=== PATIENT | female | born 1935 | race Caucasian/White ===

== ENCOUNTER 2017-06-30 12:49 | Emergency (ER) | payer MEDICARE, OTHER ==
[2017-06-30 13:21] VITALS: BP 139/53
--- NOTE | 2017-06-30 14:27 | EDM.PDOC ---
ED HPI GENERAL MEDICAL PROBLEM - General Chief Complaint: General Stated Complaint: LOW BLOOD SUGAR Time Seen by Provider: 06/30/17 13:05 Source of Information: Reports: Patient, Family History Limitations: Reports: No Limitations - History of Present Illness INITIAL COMMENTS - FREE TEXT/NARRATIVE: 81 years old w f with a h/o IDDM came to the ed because she mixed her insulin meds up. She took a long acting insulin instead a short acting Insulin. After she drinks juice, her BS gets up to 120 and stays for 10-15, then BS drops again to 75, she take more juice ar food, her BS goes up again. With any hypoglycemic episode she gets tired. Pt denies any h/o of fall. No N/V/D or any other acute medical issue. Pt lives by herself. No F/C no Dysuria Onset: Today Onset Date: 06/30/17 Onset Time: 09:00 Duration: Hour(s):, Intermittent Location: Reports: Generalized Quality: Reports: Other (feeling tired) Improves with: Reports: Medication Worsens with: Reports: Other (not eating) Treatments [employer]IATE: Reports: Other (see below) Other Treatments [employer] SALES [employer]IATE: BLOOD SUGAR - Related Data Allergies Allergy/AdvReac Type Severity Reaction Status Date / Time aspirin Allergy Cannot Verified 06/30/17 13:49 Remember codeine Allergy Cannot Verified 06/30/17 13:49 Remember Penicillins Allergy Cannot Verified 06/30/17 13:49 Remember tetracycline Allergy Cannot Verified 06/30/17 13:49 Remember Home Meds: Home Meds Benzonatate 100 mg PO BID PRN 04/29/16 [History] Celecoxib [CeleBREX] 200 mg PO DAILY 04/29/16 [History] Insulin Glarg,Human.Rec.Analog [Lantus Solostar] 50 unit SQ ACBREAKFAST [History] Insulin Lispro [HumaLOG] See Protocol SQ TID 04/29/16 [History] Pravastatin [Pravachol] 20 mg PO DAILY 04/29/16 [History] Ranitidine HCl [Ranitidine] 300 mg PO DAILY 04/29/16 [History] Enalapril Maleate [Enalapril Maleate] 10 mg PO BID 06/30/17 [History] valACYclovir [Valtrex] 1,000 mg PO BID 09/27/17 [History] Past Medical History Genitourinary History: Reports: Urinary Incontinence, UTI, Recurrent - Past Surgical History Female Surgical History: Reports: Hysterectomy, Other (See Below) Social & Family History - Tobacco Use Smoking Status *Q: Never Smoker - Caffeine Use Caffeine Use: Reports: Coffee - Recreational Drug Use Recreational Drug Use: No ED ROS GENERAL - Review of Systems Review Of Systems: See Below Constitutional: Reports: Weakness HEENT: Reports: No Symptoms Respiratory: Reports: No Symptoms Cardiovascular: Reports: No Symptoms Endocrine: Reports: No Symptoms GI/Abdominal: Reports: No Symptoms : Reports: No Symptoms Musculoskeletal: Reports: No Symptoms Skin: Reports: No Symptoms Neurological: Reports: No Symptoms Psychiatric: Reports: No Symptoms Hematologic/Lymphatic: Reports: No Symptoms Immunologic: Reports: No Symptoms ED EXAM, GENERAL - Physical Exam Exam: See Below Exam Limited By: Other (week) General Appearance: Alert, WD/WN, Mild Distress Eye Exam: Bilateral Eye: Normal Inspection Ears: Normal External Exam Ear Exam: Bilateral Ear: Auricle Normal Nose: Normal Inspection Throat/Mouth: Normal Inspection, Normal Lips Head: Atraumatic, Normocephalic Neck: Normal Inspection, Supple, Non-Tender, Full Range of Motion Respiratory/Chest: No Respiratory Distress, Lungs Clear Cardiovascular: Normal Peripheral Pulses, Regular Rate, Rhythm, No Edema Peripheral Pulses: 1+: Femoral (L), Femoral (R) GI/Abdominal: Normal Bowel Sounds (Female) Exam: Deferred Rectal (Female) Exam: Deferred Back Exam: Normal Inspection, Full Range of Motion Extremities: Normal Inspection, Normal Range of Motion Neurological: Alert, Oriented, CN II-XII Intact, Normal Cognition, Abnormal Gait (on a walker) Psychiatric: Normal Affect, Normal Mood Skin Exam: Warm, Dry, Intact, Normal Color, No Rash Lymphatic: No Adenopathy Course - Vital Signs Text/Narrative:: 81 years old w f with a h/o IDDM came to the ed because she mixed her insulin meds up. She took a long acting insulin instead a short acting Insulin. After she drinks juice, her BS gets up to 120 and stays for 10-15, then BS drops again to 75, she take more juice ar food, her BS goes up again. With any hypoglycemic episode she gets tired. Pt denies any h/o of fall. No N/V/D or any other acute medical issue. Pt lives by herself. No F/C no Dysuria PE: WNWD w f NAD, ambulating with the waker in the examination room. Labs: HA1C1 elevated to 9.7, BUN 24 Cr 0.8 BUN/Cr 30, GFR 60 Glc 78 CBC was WNL UA was neg Impression: Hypoglycemia due to meds mixup Tx: Juice and food, accu check Reexam; Improved Plan: D/C home, her son will stay with her and will check the BS as recoomended and will take food/juice till the blood glucose lever has been stabilized. Please see D/C instructions. Last Recorded V/S: Last Vital Signs Temp 36.2 C 06/30/17 13:05 Pulse 88 06/30/17 13:05 Resp 18 06/30/17 13:05 BP 139/53 L 06/30/17 13:05 Pulse Ox 97 06/30/17 13:05 - Orders/Labs/Meds Labs: Laboratory Tests 06/30/17 06/30/17 06/30/17 Range/Units 12:59 13:15 13:15 WBC 9.8 (4.5-12.0) X10-3/uL RBC 4.68 (3.23-5.20) x10(6)uL Hgb 13.7 (11.5-15.5) g/dL Hct 40.3 (30.0-51.3) % MCV 86.1 (80-96) fL MCH 29.3 (27.7-33.6) pg MCHC 34.1 (32.2-35.4) g/dL RDW 12.9 (11.5-15.5) % Plt Count 300 (125-369) X10(3)uL MPV 8.0 (7.4-10.4) fL Neut % (Auto) 73.4 (46-82) % Lymph % (Auto) 19.9 (13-37) % Stanton % (Auto) 5.5 (4-12) % Eos % (Auto) 1 (1.0-5.0) % Baso % (Auto) 0 (0-2) % Neut # (Auto) 7.2 (1.6-8.3) # Lymph # (Auto) 2.0 (0.6-5.0) # Stanton # (Auto) 0.5 (0.0-1.3) # Eos # (Auto) 0.1 (0.0-0.8) # Baso # (Auto) 0.0 (0.0-0.2) # Sodium 138 (135-145) mmol/L Potassium 4.1 (3.5-5.3) mmol/L Chloride 104 (100-110) mmol/L Carbon Dioxide 25 (23-29) mmol/L BUN 24 H (8-23) mg/dL Creatinine 0.8 (0.6-1.3) mg/dL Est Cr Clr Drug Dosing TNP Estimated GFR (MDRD) > 60 (>60) BUN/Creatinine Ratio 30.0 H (9-20) Glucose 92 D (80-116) mg/dL POC Glucose 78 L (80-116) mg/dL Hemoglobin A1c (4.0-6.0) % Calcium 9.4 (8.6-10.2) mg/dL Urine Color (YELLOW) Urine Appearance (CLEAR) Urine pH (5.0-6.5) Ur Specific Pharr (1.010-1.025) Urine Protein (NEGATIVE) mg/dL Urine Glucose (UA) (NEGATIVE) mg/dL Urine Ketones (NEGATIVE) mg/dL Urine Occult Blood (NEGATIVE) Urine Nitrite (NEGATIVE) Urine Bilirubin (NEGATIVE) Urine Urobilinogen (NEGATIVE) mg/dL Ur Leukocyte Esterase (NEGATIVE) Urine WBC (0) Ur Squamous Epith Cells (NS,R,O) Urine Bacteria (NS) 06/30/17 06/30/17 Range/Units 13:15 13:52 WBC (4.5-12.0) X10-3/uL RBC (3.23-5.20) x10(6)uL Hgb (11.5-15.5) g/dL Hct (30.0-51.3) % MCV (80-96) fL MCH (27.7-33.6) pg MCHC (32.2-35.4) g/dL RDW (11.5-15.5) % Plt Count (125-369) X10(3)uL MPV (7.4-10.4) fL Neut % (Auto) (46-82) % Lymph % (Auto) (13-37) % Stanton % (Auto) (4-12) % Eos % (Auto) (1.0-5.0) % Baso % (Auto) (0-2) % Neut # (Auto) (1.6-8.3) # Lymph # (Auto) (0.6-5.0) # Stanton # (Auto) (0.0-1.3) # Eos # (Auto) (0.0-0.8) # Baso # (Auto) (0.0-0.2) # Sodium (135-145) mmol/L Potassium (3.5-5.3) mmol/L Chloride (100-110) mmol/L Carbon Dioxide (23-29) mmol/L BUN (8-23) mg/dL Creatinine (0.6-1.3) mg/dL Est Cr Clr Drug Dosing Estimated GFR (MDRD) (>60) BUN/Creatinine Ratio (9-20) Glucose (80-116) mg/dL POC Glucose (80-116) mg/dL Hemoglobin A1c 9.7 H (4.0-6.0) % Calcium (8.6-10.2) mg/dL Urine Color Yellow (YELLOW) Urine Appearance Clear (CLEAR) Urine pH 5.0 (5.0-6.5) Ur Specific Pharr 1.015 (1.010-1.025) Urine Protein Negative (NEGATIVE) mg/dL Urine Glucose (UA) Normal (NEGATIVE) mg/dL Urine Ketones Negative (NEGATIVE) mg/dL Urine Occult Blood Negative (NEGATIVE) Urine Nitrite Negative (NEGATIVE) Urine Bilirubin Negative (NEGATIVE) Urine Urobilinogen Normal (NEGATIVE) mg/dL Ur Leukocyte Esterase Negative (NEGATIVE) Urine WBC 0-5 (0) Ur Squamous Epith Cells Few H (NS,R,O) Urine Bacteria Few H (NS) Departure - Departure Time of Disposition: 14:25 Disposition: Home, Self-Care 01 Condition: Good Clinical Impression: Hypoglycemia - Discharge Information Referrals: Dez Solomon MD [Primary Care Provider] - Forms: ED Department Discharge Additional Instructions: Please check your blood sugar every 3 hours x 3 and then every 5 hours times 2 then every 8 hours times 1 then twice or once daily. Please F/U , please come back to the ed if your symptoms get worse acutely
== END 2017-06-30 14:30 | disposition home or self-care (01) ==
LOC: FB.ED 12:49
DX: T38.3X1A Poisoning by insulin and oral hypoglycemic [antidiabetic] drugs, accidental (unintentional), initial encounter (principal); E11.649 Type 2 diabetes mellitus with hypoglycemia without coma; Z88.5 Allergy status to narcotic agent; Z88.0 Allergy status to penicillin; Z79.4 Long term (current) use of insulin; Z87.440 Personal history of urinary (tract) infections; Z88.8 Allergy status to other drugs, medicaments and biological substances
CPT/HCPCS: 36415; 80048; 81001; 82962; 83036; 85025; 99283; 99284

== ENCOUNTER 2018-03-05 02:38 | Inpatient (IN) | payer MEDICARE, OTHER, MEDICAID ==
[2018-03-05] MEDS ORDERED: Morphine 10 MG/ML Syringe IVPUSH PRN (05:07)
[2018-03-05] MEDS ORDERED: Temazepam 7.5 MG Cap PO PRN (05:07)
[2018-03-05] MEDS ORDERED: Acetaminophen 325 MG Tab PO PRN (05:07)
[2018-03-05] MEDS ORDERED: Ondansetron 4 MG/2 ML SDV IV PRN (05:07)
[2018-03-05] MEDS ORDERED: Heparin Sodium 5,000 Units/ML Vial IVPUSH ONE (05:21)
[2018-03-05] MEDS ORDERED: Heparin Sodium/0.45% NaCl 25,000 UNITS/500 ML BAG IV SCH (05:30)
[2018-03-05] MEDS ORDERED: Sodium Chloride 0.9% 1,000 ML IV SCH (05:30)
[2018-03-05] MEDS ORDERED: INSULIN GLARG HUMAN REC ANALOG SQ SCH (07:30)
[2018-03-05] MEDS ORDERED: [UNRECOGNIZED DRUG - OTHER] SQ SCH (07:30)
[2018-03-05] MEDS ORDERED: Aspirin 81 MG Tab.Chew PO ONE (08:52)
[2018-03-05] MEDS ORDERED: Insulin Aspart 100 Units/ML 3 ML Pen SUBCUT SCH (09:00)
[2018-03-05] MEDS ORDERED: INSULIN LISPRO 5 UNIT SQ SCH (09:00)
[2018-03-05] MEDS ORDERED: Clopidogrel 75 MG Tab PO ONE (09:14)
[2018-03-05] MEDS ORDERED: Insulin Detemir 100 Units/ML 3 ML Pen SUBCUT SCH (09:30)
[2018-03-05] MEDS: Insulin Aspart 100 Units/ML 3 ML Pen SUBCUT SCH ×5 (09:39→18:03)
[2018-03-05] MEDS: Metoprolol Succinate 25 MG Tab.ER PO SCH (09:52)
[2018-03-05] MEDS: Celecoxib 200 MG Cap PO SCH (09:52)
--- NOTE | 2018-03-05 12:39 | PCM.HP ---
H&P History of Present Illness - General Date of Service: 03/05/18 Admit Problem/Dx: Admission Diagnosis/Problem Admission Diagnosis/Problem NC, Myocardial infarction Source of Information: Patient, Family, Old Records, Provider - History of Present Illness Initial Comments - Free Text/Narative: Patient is an 82-year-old female who has been living in this area for some time but is planning to move to [place]. Over the last 3 weeks she has been packing up her house and doing very strenuous activity. She hasn't had any chest pain with this, but has had a couple episodes of catching shortness of breath which last 1-5 seconds. They're usually associated with trying to lift something above her head. She's been doing very strenuous physical labor with lifting, packing, and carrying heavy boxes. This is very unusual for her. Family has been helping her and she hasn't had any episodes of dizziness, feeling like she is going to pass out, but she has had a few episodes of vomiting after she eats for the last 2 weeks. She's attributed this to the stress of the move. She has a history of diabetes and has been quite hyperglycemic. Her last A1c was 9.1% in November. She often needs to take food or drink at bedtime to make sure her blood sugars are above 200 or she has a low that wakes her up in the middle the night. Last night, the night of admission, the patient had finished doing her final packing and was in her bedroom about 9 or 10 in the evening. Her daughter was sleeping in a separate bedroom and the patient suddenly noticed as she was reclining that dirt was blowing everywhere in the room. Then she started to see people walking around in the bedroom. There was a little boy, a tall thin man. She recognized at the time that they were not real but did not know where they were coming from. It was not frightening. None of them spoke. However she started to hear buzzing sound in her left ear that was a very loud like bees. She called her daughter and her daughter came in the room and said she didn't see anything but the patient continued to see things and became more concerned. She checked her blood sugar and it was 319. They stayed at home for a couple of hours and when she rechecked her blood sugar was 248. Then they decided to come into the emergency department. She's had no further hallucinations and had no other confusion. Head CT was negative. Electrolytes were all normal and the emergency room physician would have discharged her home but initial troponin was 0.458 so she was admitted for possible myocardial infarction and further monitoring and treatment. Patient denies chest pain, heaviness of the chest, shortness of breath other than as above, no wheezing, no neck pain and jaw pain or arm pain, no dizzy spells, vomiting as noted above, no diarrhea, no other bowel or bladder changes , but she just hasn't felt "good" over the last few months. She is moving out to live with her other daughter because it's been too difficult to stay here and her daughter here has been very unhappy that she is moving. Past medical history: Diabetes mellitus type 2, insulin-dependent with retinopathy and macular edema. Last A1c 9.1% in November. Hypertension Osteoarthritis Hyperlipidemia Gastroesophageal reflux disease COPD B12 deficiency Benign familial tremor Social history: Patient is a nonsmoker, nondrinker. She lives alone but one daughter is with her currently and she is moving to [place] to live with her other daughter. She is originally from [place]. - Related Data Allergies/Adverse Reactions: Allergies Allergy/AdvReac Type Severity Reaction Status Date / Time aspirin Allergy Cannot Verified 03/05/18 03:31 Remember codeine Allergy Cannot Verified 03/05/18 03:31 Remember Penicillins Allergy Cannot Verified 03/05/18 03:31 Remember tetracycline Allergy Cannot Verified 03/05/18 03:31 Remember Home Medications: Home Meds Benzonatate 100 mg PO BID PRN 04/29/16 [History] Celecoxib [CeleBREX] 200 mg PO DAILY 04/29/16 [History] Insulin Glarg,Human.Rec.Analog [Lantus Solostar] 42 unit SQ ACBREAKFAST [History] Insulin Lispro [HumaLOG] 5 unit SQ TID PRN 04/29/16 [History] Pravastatin [Pravachol] 20 mg PO BEDTIME 04/29/16 [History] Ranitidine HCl [Ranitidine] 300 mg PO DAILY 04/29/16 [History] Enalapril Maleate 10 mg PO BID 06/30/17 [History] valACYclovir [Valtrex] 1,000 mg PO BID 06/30/17 [History] Past Medical History HEENT History: Reports: Hard of Hearing, Other (See Below) Other HEENT History: deaf L ear Cardiovascular History: Reports: Angina, High Cholesterol, Hypertension Respiratory History: Reports: Pneumonia, Recurrent Other Respiratory History: lung collapse when sleeping, uses O2 @ 1.5L/NC @ hs. Gastrointestinal History: Reports: GERD Genitourinary History: Reports: Urinary Incontinence, UTI, Recurrent [employer] History: Reports: Other OB/BYN History: Musculoskeletal History: Reports: Arthritis, Neck Pain, Chronic Neurological History: Reports: CVA Psychiatric History: Reports: Anxiety, Depression Endocrine/Metabolic History: Reports: Diabetes, Type II, Obesity/BMI 30+ Hematologic History: Reports: Blood Transfusion(s) - Infectious Disease History Infectious Disease History: Reports: Measles - Past Surgical History Head Surgeries/Procedures: Reports: None HEENT Surgical History: Reports: Adenoidectomy, Cataract Surgery, Eye Surgery, Laser Surgery, Tonsillectomy Other HEENT Surgeries/Procedures: bilat cararact surgery Respiratory Surgical History: Reports: None GI Surgical History: Reports: Colonoscopy, EGD Female Surgical History: Reports: Hysterectomy, Other (See Below) Other Female Surgeries/Procedures: total hyst Neurological Surgical History: Reports: None Musculoskeletal Surgical History: Reports: Carpal Tunnel, Knee Replacement Other Musculoskeletal Surgeries/Procedures:: bilat knee replacements, bilat carpal tunnel Social & Family History - Family History Family Medical History: Unobtainable - Tobacco Use Smoking Status *Q: Never Smoker - Caffeine Use Caffeine Use: Reports: Coffee, Tea - Recreational Drug Use Recreational Drug Use: No H&P Review of Systems - Review of Systems: Review Of Systems: ROS reveals no pertinent complaints other than HPI. Exam - Exam Exam: See Below - Vital Signs Vital Signs: Last Vital Signs Temp 36.1 C 03/05/18 05:25 Pulse 80 03/05/18 11:51 Resp 20 03/05/18 11:51 BP 156/62 H 03/05/18 11:51 Pulse Ox 94 L 03/05/18 11:51 Weight: 79.061 kg - Exam General: Alert, Oriented (x3), Cooperative HEENT: PERRLA, Conjunctiva Clear, Mucosa Moist & [place], Posterior Pharynx Clear Neck: Supple, Trachea Midline Lungs: Clear to Auscultation, Normal Respiratory Effort Cardiovascular: Regular Rate, Regular Rhythm, Normal S1, Normal S2 GI/Abdominal Exam: Normal Bowel Sounds, Soft, Non-Tender, No Distention Back Exam: Normal Inspection Extremities: Normal Inspection, No Pedal Edema, Pedal Edema (trace symmetric) Neuro Extensive - Mental Status: Alert, Oriented x3, Normal Mood/Affect, Normal Cognition, Memory Intact Neuro Extensive - Motor, Sensory, Reflexes: CN II-XII Intact, Normal Gait, Other (Patient at her usual baseline. No new deficits. Strength and movement symmetrical of UE/LE.) - Patient Data Lab Results Last 24 hrs: Laboratory Results - last 24 hr 03/05/18 03/05/18 03/05/18 Range/Units 03:15 03:15 03:15 WBC 8.8 (4.5-12.0) X10-3/uL RBC 4.84 (3.23-5.20) x10(6)uL Hgb 13.9 (11.5-15.5) g/dL Hct 42.1 (30.0-51.3) % MCV 87.0 (80-96) fL MCH 28.7 (27.7-33.6) pg MCHC 33.0 (32.2-35.4) g/dL RDW 12.7 (11.5-15.5) % Plt Count 305 (125-369) X10(3)uL MPV 8.6 (7.4-10.4) fL Neut % (Auto) 59.4 (46-82) % Lymph % (Auto) 29.8 (13-37) % [place] % (Auto) 7.8 (4-12) % Eos % (Auto) 2 (1.0-5.0) % Baso % (Auto) 1 (0-2) % Neut # (Auto) 5.2 (1.6-8.3) # Lymph # (Auto) 2.6 (0.6-5.0) # [place] # (Auto) 0.7 (0.0-1.3) # Eos # (Auto) 0.2 (0.0-0.8) # Baso # (Auto) 0.1 (0.0-0.2) # PT (8.7-11.1) INR (0.89-1.13) APTT (24.4-33.2) SECONDS Sodium 140 (135-145) mmol/L Potassium 3.6 (3.5-5.3) mmol/L Chloride 102 (100-110) mmol/L Carbon Dioxide 28 (21-32) mmol/L BUN 26 H (7-18) mg/dL Creatinine 1.1 H (0.55-1.02) mg/dL Est Cr Clr Drug Dosing 27.83 mL/min Estimated GFR (MDRD) 47 L (>60) BUN/Creatinine Ratio 23.6 H (9-20) Glucose 122 H (80-116) mg/dL POC Glucose (80-116) mg/dL Calcium 9.1 (8.6-10.2) mg/dL Total Bilirubin 0.7 (0.1-1.3) mg/dL AST 18 (5-25) IU/L ALT 18 (12-36) U/L Alkaline Phosphatase 75 (56-112) IU/L Troponin I 0.458 H* (<0.017-0.056) ng/mL Total Protein 7.3 (6.0-8.0) g/dL Albumin 3.3 (3.2-4.6) g/dL Globulin 4.0 g/dL Albumin/Globulin Ratio 0.8 Urine Color (YELLOW) Urine Appearance (CLEAR) Urine pH (5.0-6.5) Ur Specific [place] (1.010-1.025) Urine Protein (NEGATIVE) mg/dL Urine Glucose (UA) (NEGATIVE) mg/dL Urine Ketones (NEGATIVE) mg/dL Urine Occult Blood (NEGATIVE) Urine Nitrite (NEGATIVE) Urine Bilirubin (NEGATIVE) Urine Urobilinogen (NEGATIVE) mg/dL Ur Leukocyte Esterase (NEGATIVE) Urine RBC (0) Urine WBC (0) Ur Squamous Epith Cells (NS,R,O) Urine Bacteria (NS) Urine Opiates Screen (NEGATIVE) Ur Oxycodone Screen (NEGATIVE) Ur Propoxyphene Screen (NEGATIVE) Ur Barbituates Screen (NEGATIVE) Ur Tricyclics Screen (NEGATIVE) Ur Phencyclidine Scrn (NEGATIVE) Ur Amphetamine Screen (NEGATIVE) Urine MDMA Screen (NEGATIVE) U Benzodiazepines Scrn (NEGATIVE) U Cocaine Metab Screen (NEGATIVE) U Marijuana (THC) Screen (NEGATIVE) 03/05/18 03/05/18 03/05/18 Range/Units 03:15 03:15 03:33 WBC (4.5-12.0) X10-3/uL RBC (3.23-5.20) x10(6)uL Hgb (11.5-15.5) g/dL Hct (30.0-51.3) % MCV (80-96) fL MCH (27.7-33.6) pg MCHC (32.2-35.4) g/dL RDW (11.5-15.5) % Plt Count (125-369) X10(3)uL MPV (7.4-10.4) fL Neut % (Auto) (46-82) % Lymph % (Auto) (13-37) % [place] % (Auto) (4-12) % Eos % (Auto) (1.0-5.0) % Baso % (Auto) (0-2) % Neut # (Auto) (1.6-8.3) # Lymph # (Auto) (0.6-5.0) # [place] # (Auto) (0.0-1.3) # Eos # (Auto) (0.0-0.8) # Baso # (Auto) (0.0-0.2) # PT 10.0 (8.7-11.1) INR 1.03 (0.89-1.13) APTT 25.3 (24.4-33.2) SECONDS Sodium (135-145) mmol/L Potassium (3.5-5.3) mmol/L Chloride (100-110) mmol/L Carbon Dioxide (21-32) mmol/L BUN (7-18) mg/dL Creatinine (0.55-1.02) mg/dL Est Cr Clr Drug Dosing mL/min Estimated GFR (MDRD) (>60) BUN/Creatinine Ratio (9-20) Glucose (80-116) mg/dL POC Glucose (80-116) mg/dL Calcium (8.6-10.2) mg/dL Total Bilirubin (0.1-1.3) mg/dL AST (5-25) IU/L ALT (12-36) U/L Alkaline Phosphatase (56-112) IU/L Troponin I (<0.017-0.056) ng/mL Total Protein (6.0-8.0) g/dL Albumin (3.2-4.6) g/dL Globulin g/dL Albumin/Globulin Ratio Urine Color Yellow (YELLOW) Urine Appearance Slightly cloudy (CLEAR) Urine pH 6.0 (5.0-6.5) Ur Specific [place] 1.010 (1.010-1.025) Urine Protein Negative (NEGATIVE) mg/dL Urine Glucose (UA) Normal (NEGATIVE) mg/dL Urine Ketones Negative (NEGATIVE) mg/dL Urine Occult Blood Negative (NEGATIVE) Urine Nitrite Negative (NEGATIVE) Urine Bilirubin Negative (NEGATIVE) Urine Urobilinogen Normal (NEGATIVE) mg/dL Ur Leukocyte Esterase Negative (NEGATIVE) Urine RBC 0-5 (0) Urine WBC 0-5 (0) Ur Squamous Epith Cells Few H (NS,R,O) Urine Bacteria Few H (NS) Urine Opiates Screen (NEGATIVE) Ur Oxycodone Screen (NEGATIVE) Ur Propoxyphene Screen (NEGATIVE) Ur Barbituates Screen (NEGATIVE) Ur Tricyclics Screen (NEGATIVE) Ur Phencyclidine Scrn (NEGATIVE) Ur Amphetamine Screen (NEGATIVE) Urine MDMA Screen (NEGATIVE) U Benzodiazepines Scrn (NEGATIVE) U Cocaine Metab Screen (NEGATIVE) U Marijuana (THC) Screen (NEGATIVE) 03/05/18 03/05/18 Range/Units 03:33 08:28 WBC (4.5-12.0) X10-3/uL RBC (3.23-5.20) x10(6)uL Hgb (11.5-15.5) g/dL Hct (30.0-51.3) % MCV (80-96) fL MCH (27.7-33.6) pg MCHC (32.2-35.4) g/dL RDW (11.5-15.5) % Plt Count (125-369) X10(3)uL MPV (7.4-10.4) fL Neut % (Auto) (46-82) % Lymph % (Auto) (13-37) % [place] % (Auto) (4-12) % Eos % (Auto) (1.0-5.0) % Baso % (Auto) (0-2) % Neut # (Auto) (1.6-8.3) # Lymph # (Auto) (0.6-5.0) # [place] # (Auto) (0.0-1.3) # Eos # (Auto) (0.0-0.8) # Baso # (Auto) (0.0-0.2) # PT (8.7-11.1) INR (0.89-1.13) APTT (24.4-33.2) SECONDS Sodium (135-145) mmol/L Potassium (3.5-5.3) mmol/L Chloride (100-110) mmol/L Carbon Dioxide (21-32) mmol/L BUN (7-18) mg/dL Creatinine (0.55-1.02) mg/dL Est Cr Clr Drug Dosing mL/min Estimated GFR (MDRD) (>60) BUN/Creatinine Ratio (9-20) Glucose (80-116) mg/dL POC Glucose 130 H (80-116) mg/dL Calcium (8.6-10.2) mg/dL Total Bilirubin (0.1-1.3) mg/dL AST (5-25) IU/L ALT (12-36) U/L Alkaline Phosphatase (56-112) IU/L Troponin I (<0.017-0.056) ng/mL Total Protein (6.0-8.0) g/dL Albumin (3.2-4.6) g/dL Globulin g/dL Albumin/Globulin Ratio Urine Color (YELLOW) Urine Appearance (CLEAR) Urine pH (5.0-6.5) Ur Specific [place] (1.010-1.025) Urine Protein (NEGATIVE) mg/dL Urine Glucose (UA) (NEGATIVE) mg/dL Urine Ketones (NEGATIVE) mg/dL Urine Occult Blood (NEGATIVE) Urine Nitrite (NEGATIVE) Urine Bilirubin (NEGATIVE) Urine Urobilinogen (NEGATIVE) mg/dL Ur Leukocyte Esterase (NEGATIVE) Urine RBC (0) Urine WBC (0) Ur Squamous Epith Cells (NS,R,O) Urine Bacteria (NS) Urine Opiates Screen Negative (NEGATIVE) Ur Oxycodone Screen Negative (NEGATIVE) Ur Propoxyphene Screen Negative (NEGATIVE) Ur Barbituates Screen Negative (NEGATIVE) Ur Tricyclics Screen Negative (NEGATIVE) Ur Phencyclidine Scrn Negative (NEGATIVE) Ur Amphetamine Screen Negative (NEGATIVE) Urine MDMA Screen Negative (NEGATIVE) U Benzodiazepines Scrn Negative (NEGATIVE) U Cocaine Metab Screen Negative (NEGATIVE) U Marijuana (THC) Screen Negative (NEGATIVE) Result Diagrams: 03/05/18 03:15 03/05/18 03:15 - Problem List (1) Elevated troponin SNOMED Code(s): 117029221, 974969866, 182528442 ICD Code: R74.8 - ABNORMAL LEVELS OF OTHER SERUM ENZYMES Status: Acute Current Visit: Yes Problem Details: Unclear etiology. Unclear if this is new or trending down. No symptoms suggestive of cardiac but will treat as AMI at this point and follow Trops. Plavix, beta malcom started. Continue statin and ACEI. Patient not interested in intervention with no sxs at her age. She can be set up for outpatient echo next week. (2) Hallucinations SNOMED Code(s): 5942442 ICD Code: R44.3 - HALLUCINATIONS, UNSPECIFIED Status: Acute Current Visit : Yes Problem Details: Again, unclear etiology. Could be stress induced with hypnogogic state as it was in the evening when she would normally have been sleeping. With stress of moving, and grief/loss, in light of normal neuro exam would wait and see if recurs. Could get MRI as outpatient to rule out occult stroke or malignancy. Head CT negative. (3) Diabetes mellitus with ophthalmic complication SNOMED Code(s): 38208980, 07690532 ICD Code: E11.39 - TYPE 2 DIABETES W OTH DIABETIC OPHTHALMIC COMPLICATION Status: Acute Current Visit: Yes Problem Details: Poorly controlled, due to lows at night if her blood sugar is below 200 at HS. Suggest we decrease lantus to 30 units from 42, and increase Humalog to 5 units with meals if AC sugar is > 110 and start sliding scale for BS > 150. This may be contributing to her overall not feeling "good" although she can't really quantify. (4) HTN (hypertension) SNOMED Code(s): 36354654 ICD Code: I10 - ESSENTIAL (PRIMARY) HYPERTENSION Status: Acute Current Visit: Yes Problem Details: BP here in the 140-150s. Added beta malcom, monitor. (5) Hyperlipidemia associated with type 2 diabetes mellitus SNOMED Code(s): 432931242499, 684065035483 ICD Code: E11.69 - TYPE 2 DIABETES MELLITUS WITH OTHER SPECIFIED COMPLICATION ; E78.5 - HYPERLIPIDEMIA, UNSPECIFIED Status: Acute Current Visit: Yes Problem Details: Continue outpatient statin. (6) DVT prophylaxis SNOMED Code(s): 524424763, 528533061 ICD Code: VBN4144 - Status: Acute Current Visit: Yes Problem Details: Lovenox. SCDs. Problem List Initiated/Reviewed/Updated: Yes Orders Last 24hrs: Active Orders 24 hr Category Date Time Status Patient Status [ADT] Routine ADT 03/05/18 04:48 Active Accu Check [Blood Glucose Check, Bedside] [RC] Care 03/05/18 11:53 Active QIDACANDBED Cardiac Monitoring [RC] 08,16,00 Care 03/05/18 10:25 Active Height and Weight [RC] 06 Care 03/05/18 10:24 Active Intake and Output [RC] 06,14,22 Care 03/05/18 10:25 Active Notify Provider Vital Signs [RC] ASDIRECTED Care 03/05/18 10:25 Active Oxygen Therapy [RC] 08 Care 03/05/18 10:25 Active Oxygen Therapy [RC] PRN Care 03/05/18 05:19 Active Pulse Oximetry [RC] PRN Care 03/05/18 04:57 Active Up With Assistance [RC] ASDIRECTED Care 03/05/18 10:24 Active VTE/DVT Education [RC] Per Unit Routine Care 03/05/18 04:48 Active Vital Signs [RC] 08,12,16,20,00,04 Care 03/05/18 04:48 Active Vital Signs [RC] Q4H Care 03/05/18 05:19 Active Vital Signs [RC] Q4H Care 03/05/18 10:25 Active Consistent Carbohydrate Diet [DIET] Diet 03/05/18 Lunch Active Brain w Cont [MR] Routine Exams 03/05/18 07:26 Ordered Head wo Cont [CT] Stat Exams 03/05/18 03:42 Taken DRUG SCREEN, URINE ALERE [URCHEM] Stat Lab 03/05/18 03:33 Ordered TROPONIN I [CHEM] AM Lab 03/06/18 05:11 Ordered TROPONIN I [CHEM] Routine Lab 03/05/18 15:00 Ordered URINALYSIS W/MICROSCOPIC [UA W/MICROSCOPIC] [URIN] Stat Lab 03/05/18 03:33 Ordered Acetaminophen [Tylenol] Med 03/05/18 05:07 Active 650 mg PO Q4H PRN Celecoxib [CeleBREX] Med 03/05/18 10:00 Active 200 mg PO DAILY Clopidogrel [Plavix] Med 03/06/18 09:00 Active 75 mg PO DAILY Docusate Sodium/Sennosides [Senna Plus] Med 03/05/18 05:19 Active 1 tab PO BID PRN Enalapril [Vasotec] Med 03/05/18 10:00 Active 10 mg PO BID Insulin Aspart [NovoLOG] Med 03/05/18 08:00 Active 5 unit SUBCUT TIDMEALS Insulin Aspart [NovoLOG] Med 03/05/18 12:00 Active See Protocol SUBCUT TIDMEALS Insulin Detemir [Levemir] Med 03/05/18 09:30 Active 30 unit SUBCUT ACBREAKFAST Metoprolol Succinate [Toprol XL] Med 03/05/18 10:00 Active 25 mg PO DAILY Morphine Med 03/05/18 05:07 Active 2 mg IVPUSH Q2H PRN Ondansetron [Zofran] Med 03/05/18 05:07 Active 4 mg IV Q4H PRN Sodium Chloride 0.9% [Saline Flush] Med 03/05/18 05:07 Active 10 ml FLUSH ASDIRECTED PRN Peripheral IV Insertion Adult [OM.PC] Routine Oth 03/05/18 05:07 Ordered Resuscitation Status Routine Resus Stat 03/05/18 04:48 Ordered EKG 12 Lead [EK] Routine Ther 03/05/18 04:40 Ordered Medication Orders Acetaminophen (Tylenol) 650 mg PO Q4H PRN PRN Reason: Pain (Mild 1-3)/fever Celecoxib (Celebrex) 200 mg PO DAILY PENDING SALE TO [facility] Last Admin: 03/05/18 09:52 Dose: 200 mg Clopidogrel Bisulfate (Plavix) 75 mg PO DAILY PENDING SALE TO [facility] Enalapril Maleate (Vasotec) 10 mg PO BID PENDING SALE TO [facility] Last Admin: 03/05/18 09:54 Dose: 10 mg Insulin Aspart (Novolog) 5 unit SUBCUT TIDMEALS PENDING SALE TO [facility] Last Admin: 03/05/18 09:39 Dose: 5 units Insulin Aspart (Novolog) 0 unit SUBCUT TIDMEALS PENDING SALE TO [facility]; Protocol Insulin Detemir (Levemir) 30 unit SUBCUT ACBREAKFAST PENDING SALE TO [facility] Last Admin: 03/05/18 09:40 Dose: 30 units Metoprolol Succinate (Toprol Xl) 25 mg PO DAILY PENDING SALE TO [facility] Last Admin: 03/05/18 09:52 Dose: 25 mg Morphine Sulfate (Morphine) 2 mg IVPUSH Q2H PRN PRN Reason: Pain (severe 7-10) Ondansetron HCl (Zofran) 4 mg IV Q4H PRN PRN Reason: Nausea/Vomiting Senna/Docusate Sodium (Senna Plus) 1 tab PO BID PRN PRN Reason: Constipation Sodium Chloride (Saline Flush) 10 ml FLUSH ASDIRECTED PRN PRN Reason: Keep Vein Open Assessment/Plan Comment:: CODE STATUS is DNR/DNI per patient and she doesn't want to go to [facility] if it can be avoided. No cardiac intervention desired at this time, just medical management.
[2018-03-05] MEDS: Sodium Chloride 0.9% 10 ML Syringe FLUSH PRN ×2 (12:58→16:35)
[2018-03-05] MEDS ORDERED: 50% Dextrose in Water 50 ML Syringe ONE (16:32)
[2018-03-05] MEDS ORDERED: 50% Dextrose in Water 50 ML Syringe IVPUSH ONE (16:36)
[2018-03-05] MEDS ORDERED: Aluminum Hydroxide/Magnesium Hydroxide Susp 30 ML Cup PO PRN (20:49)
[2018-03-05] MEDS ORDERED: Aluminum Hydroxide/Magnesium Hydroxide Susp 30 ML Cup ONE (20:54)
[2018-03-06] MEDS: Insulin Aspart 100 Units/ML 3 ML Pen SUBCUT SCH ×6 (07:24→17:45)
[2018-03-06] MEDS: Insulin Detemir 100 Units/ML 3 ML Pen SUBCUT SCH (08:02)
[2018-03-06] MEDS ORDERED: Nitroglycerin 0.4 MG Tab.SL SL PRN (08:25)
--- NOTE | 2018-03-06 08:32 | PCM.PN ---
- General Info Date of Service: 03/06/18 Subjective Update: patient is an 82-year-old female currently on hospital day #2 for elevated troponin, diabetes mellitus type 2 with poor control, and visual hallucinations. Yesterday afternoon the patient had a significant low blood sugar of 42. Even at the reduced dose of Lantus her blood sugar dropped almost 100 points overnight. In talking with the patient about her history recently, it sounds like she's been having lots of low type symptoms and requiring eating almost constantly to try to prevent low blood sugars. Particularly with all the increased activity she's been doing, she gets shaky frequently and needs to eat or drink something with sugar in it. This is in addition to the episodes she has at night. Early this morning I transfered the patient out of the ICU and to the medical floor after her troponin came back again lower at 0.192. The patient was was eating breakfast this morning and had an episode of chest discomfort which was very mild and accompanied by a little feeling of pressure in the chest. She also had a cough with this. EKG was repeated and showed no new changes. Telemetry was unremarkable during the symptoms. Passed fairly quickly and had no other associated symptoms with it. No dizziness. No shortness of breath. No nausea or vomiting. I suspect this was gastroesophageal in nature given that it occurred with food and had coughing associated with it. - Patient Data Vitals - Most Recent: Last Vital Signs Temp 36.5 C 03/06/18 08:00 Pulse 64 03/05/18 17:44 Resp 20 03/06/18 08:00 BP 129/50 L 03/06/18 08:00 Pulse Ox 95 03/06/18 08:00 Weight - Most Recent: 78.245 kg I&O - Last 24 Hours: Intake & Output 03/05/18 03/06/18 03/06/18 22:59 06:59 14:59 Intake Total 550 100 Output Total 325 600 Balance 225 -500 Lab Results Last 24 Hours: Laboratory Results - last 24 hr 03/05/18 03/05/18 03/05/18 Range/Units 08:28 12:49 14:55 Glucose (80-116) mg/dL POC Glucose 130 H 190 H (80-116) mg/dL Troponin I 0.275 H* (<0.017-0.056) ng/mL 06/11/2103/05/18 03/05/18 Range/Units 16:19 16:25 16:47 Glucose 56 L (80-116) mg/dL POC Glucose 42 L D 166 H D (80-116) mg/dL Troponin I (<0.017-0.056) ng/mL 03/05/18 03/06/18 03/06/18 Range/Units 20:07 06:19 06:20 Glucose (80-116) mg/dL POC Glucose 197 H 103 D (80-116) mg/dL Troponin I 0.192 H* (<0.017-0.056) ng/mL Med Orders - Current: Current Medications Acetaminophen (Tylenol) 650 mg PO Q4H PRN PRN Reason: Pain (Mild 1-3)/fever Al Hydroxide/Mg Hydroxide (Mag-Al Susp) 30 ml PO Q2H PRN PRN Reason: Indigestion Last Admin: 03/05/18 20:55 Dose: 30 ml Celecoxib (Celebrex) 200 mg PO DAILY [facility] Last Admin: 03/05/18 09:52 Dose: 200 mg Clopidogrel Bisulfate (Plavix) 75 mg PO DAILY [facility] Enalapril Maleate (Vasotec) 10 mg PO BID [facility] Last Admin: 03/05/18 20:08 Dose: 10 mg Famotidine (Pepcid) 20 mg PO DAILY [facility] Insulin Aspart (Novolog) 0 unit SUBCUT TIDMEALS [facility]; Protocol Last Admin: 03/06/18 07:24 Dose: Not Given Insulin Aspart (Novolog) 2 unit SUBCUT TIDMEALS [facility] Last Admin: 03/06/18 08:01 Dose: 2 units Insulin Detemir (Levemir) 15 unit SUBCUT ACBREAKFAST [facility] Last Admin: 03/06/18 08:02 Dose: 15 units Metoprolol Succinate (Toprol Xl) 25 mg PO DAILY [facility] Last Admin: 03/05/18 09:52 Dose: 25 mg Morphine Sulfate (Morphine) 2 mg IVPUSH Q2H PRN PRN Reason: Pain (severe 7-10) Nitroglycerin (Nitrostat) 0.4 mg SL Q5M PRN PRN Reason: Chest Pain Ondansetron HCl (Zofran) 4 mg IV Q4H PRN PRN Reason: Nausea/Vomiting Senna/Docusate Sodium (Senna Plus) 1 tab PO BID PRN PRN Reason: Constipation Simvastatin (Zocor) 10 mg PO BEDTIME [facility] Sodium Chloride (Saline Flush) 10 ml FLUSH ASDIRECTED PRN PRN Reason: Keep Vein Open Last Admin: 03/05/18 16:35 Dose: 10 ml Discontinued Medications Al Hydroxide/Mg Hydroxide (Mag-Al Susp) Confirm Administered Dose 30 ml .ROUTE .STK-MED ONE Stop: 03/05/18 20:55 Last Admin: 03/05/18 21:08 Dose: Not Given Aspirin (Aspirin) 324 mg PO ONETIME ONE Stop: 03/05/18 08:53 Last Admin: 03/05/18 09:01 Dose: Not Given Aspirin (Halfprin) 81 mg PO DAILY [facility] Clopidogrel Bisulfate (Plavix) 300 mg PO ONETIME ONE Stop: 03/05/18 09:15 Last Admin: 03/05/18 09:52 Dose: 300 mg Dextrose/Water (Dextrose 50% In Water) Confirm Administered Dose 50 ml .ROUTE .STK-MED ONE Stop: 03/05/18 16:33 Last Admin: 03/05/18 16:42 Dose: Not Given Dextrose/Water (Dextrose 50% In Water) 25 ml IVPUSH ONETIME ONE Stop: 03/05/18 16:37 Last Admin: 03/05/18 16:33 Dose: 25 ml Heparin Sodium (Porcine) (Heparin Sodium) 5,000 units IVPUSH ONETIME ONE Stop: 03/05/18 05:22 Last Admin: 03/05/18 06:14 Dose: 5,000 units Heparin Sodium/Sodium Chloride (Heparin 25,000 Units In 1/2 Ns 500 Ml) 25,000 units in 500 mls @ 20 mls/hr IV TITRATE [facility]; Protocol Sodium Chloride (Normal Saline) 1,000 mls @ 75 mls/hr IV ASDIRECTED [facility] Last Admin: 03/05/18 06:12 Dose: 75 mls/hr Insulin Aspart (Novolog) 5 unit SUBCUT TIDMEALS [facility] Last Admin: 03/05/18 12:56 Dose: 5 units Insulin Aspart (Novolog) 30 unit SUBCUT ACBREAKFAST [facility] Last Admin: 03/05/18 10:04 Dose: Not Given Insulin Detemir (Levemir) 30 unit SUBCUT ACBREAKFAST [facility] Last Admin: 03/05/18 09:40 Dose: 30 units Non-Formulary Medication (Insulin Glarg,Human.Rec.Analog [Lantus Solostar]) 42 unit SQ ACBREAKFAST [facility] Last Admin: 03/05/18 09:00 Dose: Not Given Non-Formulary Medication (Insulin Lispro [Humalog]) 5 unit SQ TID [facility] Temazepam (Restoril) 7.5 mg PO BEDTIME PRN PRN Reason: Sleep - Exam General: Alert, Oriented, Cooperative, No Acute Distress HEENT: Pupils Equal, Pupils Reactive Neck: Supple Lungs: Clear to Auscultation, Normal Respiratory Effort Cardiovascular: Regular Rate, Regular Rhythm, No Murmurs GI/Abdominal Exam: Normal Bowel Sounds, Soft, Non-Tender, No Distention Extremities: Normal Inspection, No Pedal Edema (Exquisitely tender legs to light touch which patient notes is chronic. She mentioned this yesterday as well.) - Problem List & Annotations (1) Elevated troponin SNOMED Code(s): 059958935, 729860081, 380724387 Code(s): R74.8 - ABNORMAL LEVELS OF OTHER SERUM ENZYMES Status: Acute Current Visit: Yes Annotation/Comment:: I suspect this patient may have had a global ischemia possibly related to these intermittent low blood sugars. Given the rapid trending down, it's likely this happened at least 24 hours before admission if not longer. Plavix, beta malcom started. Continue statin and ACEI. Patient not interested in intervention with no sxs at her age. She can be set up for outpatient echo next week. (2) Hallucinations SNOMED Code(s): 5510336 Code(s): R44.3 - HALLUCINATIONS, UNSPECIFIED Status: Acute Current Visit : Yes Annotation/Comment:: Unclear etiology. In reviewing the patient's medications, Valtrex does have the potential for rare side effect of hallucinations but the patient is not sure when she started this, why she's been taking this, and it's not on her list in the clinic chart. We will have to contact the pharmacy to see if we can find out when it was started. She denies shingles or cold sores.I did hold it on admission since she wasn't sure why she' s on it and she's had no further hallucinations this morning. Could also be related to the hyper/hypoglycemia. Continue to monitor. (3) Diabetes mellitus with ophthalmic complication SNOMED Code(s): 62299807, 77624512 Code(s): E11.39 - TYPE 2 DIABETES [facility] DIABETIC OPHTHALMIC COMPLICATION Status: Acute Current Visit: Yes Annotation/Comment:: Poorly controlled and I suspect the patient is having significant lows with subsequent eating and drinking trying to increase her blood sugars to normal levels. This results in highs which causes her insulin to be increased by her provider which is making the problem worse. I'd like to keep her here for 2 or 3 days to stabilize her blood sugars and make sure that her insulin particularly the long-acting isn't dropping her blood sugars more than 40-50 points overnight.feeding she had such a significant drop yesterday to 42 postprandially in the afternoon that I cut her meal coverage down to 2 units per meal with low-dose sliding scale. We'll continue that today. (4) HTN (hypertension) SNOMED Code(s): 30631426 Code(s): I10 - ESSENTIAL (PRIMARY) HYPERTENSION Status: Acute Current Visit: Yes Annotation/Comment:: BP here in the 140-150s. Added beta malcom, monitor. (5) Hyperlipidemia associated with type 2 diabetes mellitus SNOMED Code(s): 031470145504, 040866240158 Code(s): E11.69 - TYPE 2 DIABETES MELLITUS WITH OTHER SPECIFIED COMPLICATION ; E78.5 - HYPERLIPIDEMIA, UNSPECIFIED Status: Acute Current Visit: Yes Annotation/Comment:: Continue outpatient statin. (6) DVT prophylaxis SNOMED Code(s): 245670461, 592862174 Code(s): MBN4157 - Status: Acute Current Visit: Yes Annotation/Comment :: Lovenox. SCDs. - Problem List Review Problem List Initiated/Reviewed/Updated: Yes - My Orders Last 24 Hours: My Active Orders 03/05/18 10:00 Metoprolol Succinate [Toprol XL] 25 mg PO DAILY 03/05/18 10:24 Height and Weight [RC] 06 Up With Assistance [RC] ASDIRECTED 03/05/18 10:25 Cardiac Monitoring [RC] 08,16,00 Intake and Output [RC] 06,14,22 Notify Provider Vital Signs [RC] ASDIRECTED Oxygen Therapy [RC] 08 Vital Signs [RC] 08,12,16,20,00,04 03/05/18 11:53 Accu Check [Blood Glucose Check, Bedside] [] 08,12,18,21 03/05/18 12:00 Insulin Aspart [NovoLOG] See Protocol SUBCUT TIDMEALS 03/05/18 16:45 Blood Glucose Check, Bedside [] ONETIME 03/05/18 18:00 Insulin Aspart [NovoLOG] 2 unit SUBCUT TIDMEALS 03/05/18 20:49 Alum Hydroxide/Mag Hydroxide [Mag-Al Susp] 30 ml PO Q2H PRN 03/05/18 Lunch Consistent Carbohydrate Diet [DIET] 03/06/18 07:30 Insulin Detemir [Levemir] 15 unit SUBCUT ACBREAKFAST 03/06/18 08:25 Nitroglycerin [Nitrostat] 0.4 mg SL Q5M PRN 03/06/18 09:00 Clopidogrel [Plavix] 75 mg PO DAILY Famotidine [Pepcid] 20 mg PO DAILY 03/06/18 21:00 Simvastatin [Zocor] 10 mg PO BEDTIME - Plan Plan:: CODE STATUS is DNR/DNI per patient and she doesn't want to go to [place] if it can be avoided. No cardiac intervention desired at this time, just medical management.
[2018-03-06] MEDS ORDERED: Aspirin 81 MG Tab.EC PO SCH (09:00)
[2018-03-06] MEDS: Celecoxib 200 MG Cap PO SCH (09:37)
[2018-03-06] MEDS: Clopidogrel 75 MG Tab PO SCH (09:39)
[2018-03-06] MEDS: Metoprolol Succinate 25 MG Tab.ER PO SCH (09:39)
[2018-03-06] MEDS: Famotidine 20 MG Tab PO SCH (09:47)
[2018-03-06] MEDS: Enoxaparin 30 MG/0.3 ML Syringe SUBCUT SCH (11:24)
[2018-03-06] MEDS: Simvastatin 10 MG Tab PO SCH (22:29)
[2018-03-06] MEDS: hydrOXYzine HCl 25 MG Tab PO PRN (23:21)
[2018-03-07] MEDS: hydrOXYzine HCl 25 MG Tab PO PRN (08:09)
[2018-03-07] MEDS: Insulin Aspart 100 Units/ML 3 ML Pen SUBCUT SCH ×6 (08:15→17:27)
[2018-03-07] MEDS: Insulin Detemir 100 Units/ML 3 ML Pen SUBCUT SCH (08:17)
[2018-03-07] MEDS: Celecoxib 200 MG Cap PO SCH (08:22)
[2018-03-07] MEDS: Clopidogrel 75 MG Tab PO SCH (08:23)
[2018-03-07] MEDS: Metoprolol Succinate 25 MG Tab.ER PO SCH (08:23)
[2018-03-07] MEDS: Enoxaparin 30 MG/0.3 ML Syringe SUBCUT SCH (09:01)
[2018-03-07] MEDS: Famotidine 20 MG Tab PO SCH (09:01)
--- NOTE | 2018-03-07 09:25 | PCM.PN ---
- General Info Date of Service: 03/07/18 Subjective Update: Patient doing well this morning. No further coughing episodes or chest pain with eating. She did have an episode of itching last night and felt "sick" which she associates with high blood sugars. Her blood sugar was 218 when checked. She did not receive any insulin for this. She's had no shortness of breath and no nausea or vomiting. No abdominal pain. Blood sugars were 185 yesterday morning, 153 at noon, 218 at at bedtime, 156 this morning. Interestingly when her blood sugar was high last night she did have some hallucinations. We are still trying to sort out how the Valtrex got on on her med list as it doesn't appear the patient ever really took Valtrex. - Patient Data Vitals - Most Recent: Last Vital Signs Temp 36.3 C 03/07/18 07:30 Pulse 72 03/07/18 08:23 Resp 20 03/07/18 07:30 BP 130/59 L 03/07/18 08:24 Pulse Ox 94 L 03/07/18 07:30 Weight - Most Recent: 79.243 kg I&O - Last 24 Hours: Intake & Output 03/06/18 03/07/18 03/07/18 22:59 06:59 14:59 Intake Total 50 Balance 50 Lab Results Last 24 Hours: Laboratory Results - last 24 hr 03/06/18 03/06/18 03/06/18 Range/Units 11:20 17:43 19:57 WBC (4.5-12.0) X10-3/uL RBC (3.23-5.20) x10(6)uL Hgb (11.5-15.5) g/dL Hct (30.0-51.3) % MCV (80-96) fL MCH (27.7-33.6) pg MCHC (32.2-35.4) g/dL RDW (11.5-15.5) % Plt Count (125-369) X10(3)uL MPV (7.4-10.4) fL Neut % (Auto) (46-82) % Lymph % (Auto) (13-37) % [place] % (Auto) (4-12) % Eos % (Auto) (1.0-5.0) % Baso % (Auto) (0-2) % Neut # (Auto) (1.6-8.3) # Lymph # (Auto) (0.6-5.0) # [place] # (Auto) (0.0-1.3) # Eos # (Auto) (0.0-0.8) # Baso # (Auto) (0.0-0.2) # Sodium (135-145) mmol/L Potassium (3.5-5.3) mmol/L Chloride (100-110) mmol/L Carbon Dioxide (21-32) mmol/L BUN (7-18) mg/dL Creatinine (0.55-1.02) mg/dL Est Cr Clr Drug Dosing mL/min Estimated GFR (MDRD) (>60) BUN/Creatinine Ratio (9-20) Glucose (80-116) mg/dL POC Glucose 185 H D 153 H 215 H (80-116) mg/dL Calcium (8.6-10.2) mg/dL Total Bilirubin (0.1-1.3) mg/dL AST (5-25) IU/L ALT (12-36) U/L Alkaline Phosphatase (56-112) IU/L Total Protein (6.0-8.0) g/dL Albumin (3.2-4.6) g/dL Globulin g/dL Albumin/Globulin Ratio 03/06/18 03/07/18 03/07/18 Range/Units 22:47 05:30 05:30 WBC 6.9 (4.5-12.0) X10-3/uL RBC 4.33 (3.23-5.20) x10(6)uL Hgb 12.8 (11.5-15.5) g/dL Hct 38.3 (30.0-51.3) % MCV 88.4 (80-96) fL MCH 29.5 (27.7-33.6) pg MCHC 33.4 (32.2-35.4) g/dL RDW 12.6 (11.5-15.5) % Plt Count 269 (125-369) X10(3)uL MPV 8.0 (7.4-10.4) fL Neut % (Auto) 47.9 (46-82) % Lymph % (Auto) 38.6 H (13-37) % [place] % (Auto) 9.2 (4-12) % Eos % (Auto) 4 (1.0-5.0) % Baso % (Auto) 1 (0-2) % Neut # (Auto) 3.3 (1.6-8.3) # Lymph # (Auto) 2.7 (0.6-5.0) # [place] # (Auto) 0.6 (0.0-1.3) # Eos # (Auto) 0.2 (0.0-0.8) # Baso # (Auto) 0.1 (0.0-0.2) # Sodium 139 (135-145) mmol/L Potassium 4.2 (3.5-5.3) mmol/L Chloride 104 (100-110) mmol/L Carbon Dioxide 30 (21-32) mmol/L BUN 32 H (7-18) mg/dL Creatinine 1.1 H (0.55-1.02) mg/dL Est Cr Clr Drug Dosing 27.83 mL/min Estimated GFR (MDRD) 47 L (>60) BUN/Creatinine Ratio 29.1 H (9-20) Glucose 156 H D (80-116) mg/dL POC Glucose 218 H (80-116) mg/dL Calcium 9.0 (8.6-10.2) mg/dL Total Bilirubin 0.6 (0.1-1.3) mg/dL AST 13 D (5-25) IU/L ALT 15 D (12-36) U/L Alkaline Phosphatase 65 (56-112) IU/L Total Protein 6.6 (6.0-8.0) g/dL Albumin 2.9 L (3.2-4.6) g/dL Globulin 3.7 g/dL Albumin/Globulin Ratio 0.8 /01/19 Range/Units 05:32 WBC (4.5-12.0) X10-3/uL RBC (3.23-5.20) x10(6)uL Hgb (11.5-15.5) g/dL Hct (30.0-51.3) % MCV (80-96) fL MCH (27.7-33.6) pg MCHC (32.2-35.4) g/dL RDW (11.5-15.5) % Plt Count (125-369) X10(3)uL MPV (7.4-10.4) fL Neut % (Auto) (46-82) % Lymph % (Auto) (13-37) % [place] % (Auto) (4-12) % Eos % (Auto) (1.0-5.0) % Baso % (Auto) (0-2) % Neut # (Auto) (1.6-8.3) # Lymph # (Auto) (0.6-5.0) # [place] # (Auto) (0.0-1.3) # Eos # (Auto) (0.0-0.8) # Baso # (Auto) (0.0-0.2) # Sodium (135-145) mmol/L Potassium (3.5-5.3) mmol/L Chloride (100-110) mmol/L Carbon Dioxide (21-32) mmol/L BUN (7-18) mg/dL Creatinine (0.55-1.02) mg/dL Est Cr Clr Drug Dosing mL/min Estimated GFR (MDRD) (>60) BUN/Creatinine Ratio (9-20) Glucose (80-116) mg/dL POC Glucose 151 H (80-116) mg/dL Calcium (8.6-10.2) mg/dL Total Bilirubin (0.1-1.3) mg/dL AST (5-25) IU/L ALT (12-36) U/L Alkaline Phosphatase (56-112) IU/L Total Protein (6.0-8.0) g/dL Albumin (3.2-4.6) g/dL Globulin g/dL Albumin/Globulin Ratio Med Orders - Current: Current Medications Acetaminophen (Tylenol) 650 mg PO Q4H PRN PRN Reason: Pain (Mild 1-3)/fever Al Hydroxide/Mg Hydroxide (Mag-Al Susp) 30 ml PO Q2H PRN PRN Reason: Indigestion Last Admin: 03/05/18 20:55 Dose: 30 ml Celecoxib (Celebrex) 200 mg PO DAILY [facility] Last Admin: 03/07/18 08:22 Dose: 200 mg Clopidogrel Bisulfate (Plavix) 75 mg PO DAILY [facility] Last Admin: 03/07/18 08:23 Dose: 75 mg Enalapril Maleate (Vasotec) 10 mg PO BID [facility] Last Admin: 03/07/18 08:24 Dose: 10 mg Enoxaparin Sodium (Lovenox) 30 mg SUBCUT DAILY [facility] Last Admin: 03/07/18 09:01 Dose: 30 mg Famotidine (Pepcid) 20 mg PO DAILY [facility] Last Admin: 03/07/18 09:01 Dose: 20 mg Hydroxyzine HCl (Atarax) 50 mg PO Q4H PRN PRN Reason: Itching Last Admin: 03/07/18 08:09 Dose: 50 mg Insulin Aspart (Novolog) 0 unit SUBCUT TIDMEALS [facility]; Protocol Last Admin: 03/07/18 08:15 Dose: 2 units Insulin Aspart (Novolog) 2 unit SUBCUT TIDMEALS [facility] Last Admin: 03/07/18 08:16 Dose: 2 units Insulin Detemir (Levemir) 15 unit SUBCUT ACBREAKFAST [facility] Last Admin: 03/07/18 08:17 Dose: 15 units Metoprolol Succinate (Toprol Xl) 25 mg PO DAILY [facility] Last Admin: 03/07/18 08:23 Dose: 25 mg Morphine Sulfate (Morphine) 2 mg IVPUSH Q2H PRN PRN Reason: Pain (severe 7-10) Nitroglycerin (Nitrostat) 0.4 mg SL Q5M PRN PRN Reason: Chest Pain Last Admin: 03/06/18 08:25 Dose: 0.4 mg Ondansetron HCl (Zofran) 4 mg IV Q4H PRN PRN Reason: Nausea/Vomiting Senna/Docusate Sodium (Senna Plus) 1 tab PO BID PRN PRN Reason: Constipation Simvastatin (Zocor) 10 mg PO BEDTIME [facility] Last Admin: 03/06/18 22:29 Dose: 10 mg Sodium Chloride (Saline Flush) 10 ml FLUSH ASDIRECTED PRN PRN Reason: Keep Vein Open Last Admin: 03/05/18 16:35 Dose: 10 ml Discontinued Medications Al Hydroxide/Mg Hydroxide (Mag-Al Susp) Confirm Administered Dose 30 ml .ROUTE .STK-MED ONE Stop: 03/05/18 20:55 Last Admin: 03/05/18 21:08 Dose: Not Given Aspirin (Aspirin) 324 mg PO ONETIME ONE Stop: 03/05/18 08:53 Last Admin: 03/05/18 09:01 Dose: Not Given Aspirin (Halfprin) 81 mg PO DAILY [facility] Clopidogrel Bisulfate (Plavix) 300 mg PO ONETIME ONE Stop: 03/05/18 09:15 Last Admin: 03/05/18 09:52 Dose: 300 mg Dextrose/Water (Dextrose 50% In Water) Confirm Administered Dose 50 ml .ROUTE .STK-MED ONE Stop: 03/05/18 16:33 Last Admin: 03/05/18 16:42 Dose: Not Given Dextrose/Water (Dextrose 50% In Water) 25 ml IVPUSH ONETIME ONE Stop: 03/05/18 16:37 Last Admin: 03/05/18 16:33 Dose: 25 ml Heparin Sodium (Porcine) (Heparin Sodium) 5,000 units IVPUSH ONETIME ONE Stop: 03/05/18 05:22 Last Admin: 03/05/18 06:14 Dose: 5,000 units Heparin Sodium/Sodium Chloride (Heparin 25,000 Units In 1/2 Ns 500 Ml) 25,000 units in 500 mls @ 20 mls/hr IV TITRATE [facility]; Protocol Sodium Chloride (Normal Saline) 1,000 mls @ 75 mls/hr IV ASDIRECTED [facility] Last Admin: 03/05/18 06:12 Dose: 75 mls/hr Insulin Aspart (Novolog) 5 unit SUBCUT TIDMEALS [facility] Last Admin: 03/05/18 12:56 Dose: 5 units Insulin Aspart (Novolog) 30 unit SUBCUT ACBREAKFAST [facility] Last Admin: 03/05/18 10:04 Dose: Not Given Insulin Detemir (Levemir) 30 unit SUBCUT ACBREAKFAST [facility] Last Admin: 03/05/18 09:40 Dose: 30 units Non-Formulary Medication (Insulin Glarg,Human.Rec.Analog [Lantus Solostar]) 42 unit SQ ACBREAKFAST [facility] Last Admin: 03/05/18 09:00 Dose: Not Given Non-Formulary Medication (Insulin Lispro [Humalog]) 5 unit SQ TID [facility] Temazepam (Restoril) 7.5 mg PO BEDTIME PRN PRN Reason: Sleep - Exam General: Alert, Oriented, Cooperative HEENT: Pupils Equal, Pupils Reactive Neck: Supple Lungs: Clear to Auscultation, Normal Respiratory Effort Cardiovascular: Regular Rate, Regular Rhythm, No Murmurs GI/Abdominal Exam: Normal Bowel Sounds, Soft, Non-Tender, No Distention Extremities: Normal Inspection, No Pedal Edema Skin: Other (No rash in the areas where the patient complained of her itching.) - Problem List & Annotations (1) Elevated troponin SNOMED Code(s): 372887171, 390534771, 262345125 Code(s): R74.8 - ABNORMAL LEVELS OF OTHER SERUM ENZYMES Status: Acute Current Visit: Yes Annotation/Comment:: Will get echo tomorrow prior to discharge. Plavix, beta malcom started. Continue statin and ACEI. Patient not interested in intervention with no sxs at her age. Was concerned with the itching that it may be related to one of her new medications but she has no rash and the itching seemed related to high blood sugar. We'll monitor. (2) Hallucinations SNOMED Code(s): 2789485 Code(s): R44.3 - HALLUCINATIONS, UNSPECIFIED Status: Acute Current Visit : Yes Annotation/Comment:: Seems to be related to the hyper/hypoglycemia. Continue to monitor. MRI tomorrow. If MRI is unrevealing, would suggest we set up outpatient EEG for further evaluation. (3) Diabetes mellitus with ophthalmic complication SNOMED Code(s): 82864600, 19847254 Code(s): E11.39 - TYPE 2 DIABETES [facility] DIABETIC OPHTHALMIC COMPLICATION Status: Acute Current Visit: Yes Annotation/Comment:: Poorly controlled and I suspect the patient is having significant lows with subsequent eating and drinking trying to increase her blood sugars to normal levels. Blood sugars are stabilizing nicely. Lantus currently at 15 units and no coverage at 2 units per meal. I will increase sliding scale to medium dose sliding scale today and if the patient tolerates this well can be discharged on 3 units per meal and SS > 150. (4) HTN (hypertension) SNOMED Code(s): 71280581 Code(s): I10 - ESSENTIAL (PRIMARY) HYPERTENSION Status: Acute Current Visit: Yes Annotation/Comment:: BP here in the 140-150s. Added beta malcom, monitor. (5) Hyperlipidemia associated with type 2 diabetes mellitus SNOMED Code(s): 509051328917, 300345114104 Code(s): E11.69 - TYPE 2 DIABETES MELLITUS WITH OTHER SPECIFIED COMPLICATION ; E78.5 - HYPERLIPIDEMIA, UNSPECIFIED Status: Acute Current Visit: Yes Annotation/Comment:: Continue outpatient statin. (6) DVT prophylaxis SNOMED Code(s): 702940899, 600239347 Code(s): BML0657 - Status: Acute Current Visit: Yes Annotation/Comment :: Lovenox. SCDs. - Problem List Review Problem List Initiated/Reviewed/Updated: Yes - My Orders Last 24 Hours: My Active Orders 03/06/18 08:25 Nitroglycerin [Nitrostat] 0.4 mg SL Q5M PRN 03/06/18 09:00 Clopidogrel [Plavix] 75 mg PO DAILY Famotidine [Pepcid] 20 mg PO DAILY 03/06/18 10:45 Enoxaparin [Lovenox] 30 mg SUBCUT DAILY 03/06/18 21:00 Simvastatin [Zocor] 10 mg PO BEDTIME 03/06/18 22:50 hydrOXYzine HCl [Atarax] 50 mg PO Q4H PRN - Plan Plan:: CODE STATUS is DNR/DNI per patient and she doesn't want to go to [place] if it can be avoided. No cardiac intervention desired at this time, just medical management.
[2018-03-07] MEDS ORDERED: hydrOXYzine HCl 25 MG Tab PO PRN (10:29)
[2018-03-07] MEDS: Sodium Chloride 0.9% 10 ML Syringe FLUSH PRN (17:35)
[2018-03-07] MEDS: Simvastatin 10 MG Tab PO SCH ×3 (19:46→20:20)
[2018-03-08] MEDS: Insulin Detemir 100 Units/ML 3 ML Pen SUBCUT SCH (06:38)
[2018-03-08] MEDS: Insulin Aspart 100 Units/ML 3 ML Pen SUBCUT SCH ×4 (07:49→11:53)
[2018-03-08] MEDS: Enoxaparin 30 MG/0.3 ML Syringe SUBCUT SCH (09:13)
[2018-03-08] MEDS: Clopidogrel 75 MG Tab PO SCH (09:14)
[2018-03-08] MEDS: Famotidine 20 MG Tab PO SCH (09:14)
[2018-03-08] MEDS: Celecoxib 200 MG Cap PO SCH (09:14)
[2018-03-08] MEDS: Metoprolol Succinate 25 MG Tab.ER PO SCH (09:15)
[2018-03-08 12:40] VITALS: BP 154/70
--- NOTE | 2018-03-08 15:09 | PCM.DCSUM1 ---
Discharge Summary - Hospital Course Free Text/Narrative:: Date of admission: 03/05/18 Date of discharge: 03/08/18 [place] diagnosis: Hallucinations, elevated troponin without chest pain. Discharge diagnosis: Elevated troponins with preliminary echo showing possible septal hypokinesis and EF of 45%. Diabetes mellitus type 2, with significant lows now resolved. Hallucinations, unclear etiology, now resolved. Consults: None. Did discuss the patient's presentation of hallucinations with neurology via phone. The neurologist at [place] felt that these were unlikely to be caused by seizures because of the duration and the detail, and unlikely because a small infarct shown on the patient's MRI because of the location. Patient will follow-up with neurology in [place] when she moves in a week. Procedures: CT of the head was negative on admission. Echocardiogram as above. Final results still pending. MRI of the head showed minimal small vessel ischemic change and a possible single focus of restricted diffusion on the cortex and left frontal lobe which may represent acute ischemia. Neurology recommended evaluation as an outpatient for atrial fibrillation given the location of this and the potential for embolic disease. The patient showed no evidence of atrial fibrillation during hospitalization. History of present illness: Patient is an 82-year-old female who has been living in this area for some time but is planning to move to [place]. Over the last 3 weeks she had been packing up her house and doing very strenuous activity. She hasn't had any chest pain with this, but has had a couple episodes of catching shortness of breath which last 1-5 seconds. They're usually associated with trying to lift something above her head. She's been doing very strenuous physical labor with lifting, packing, and carrying heavy boxes. This is very unusual for her. Family has been helping her and she hasn't had any episodes of dizziness, feeling like she is going to pass out, but she has had a few episodes of vomiting after she eats for the last 2 weeks. She's attributed this to the stress of the move. She has a history of diabetes and has been quite hyperglycemic. Her last A1c was 9.1% in November. She often needs to take food or drink at bedtime to make sure her blood sugars are above 200 or she has a low that wakes her up in the middle the night. The night of admission, the patient had finished doing her final packing and was in her bedroom about 9 or 10 in the evening. Her daughter was sleeping in a separate bedroom and the patient suddenly noticed as she was reclining that dirt was blowing everywhere in the room. Then she started to see people walking around in the bedroom. There was a little boy, a tall thin man. She recognized at the time that they were not real but did not know where they were coming from. It was not frightening. None of them spoke. However she started to hear buzzing sound in her left ear that was a very loud like bees. She called her daughter and her daughter came in the room and said she didn't see anything but the patient continued to see things and became more concerned. She checked her blood sugar and it was 319. They stayed at home for a couple of hours and when she rechecked her blood sugar was 248. Then they decided to come into the emergency department. Head CT was negative. Electrolytes were all normal and the emergency room physician would have discharged her home but initial troponin was 0.458 so she was admitted for possible myocardial infarction and further monitoring and treatment. Hospital course: Patient was initially found to have very significant drop in her blood sugars overnight with over 100 point drop the first night. She also had some lows during the day even with her Lantus decreased on admission. Lantus was cut down significantly as was meal coverage and sliding scale insulin was added. Blood triggered stated in the 200 range during hospitalization without any symptoms of lows. The patient did have some further hallucinations with both low blood sugar and with high blood sugar. She had no chest pain, no shortness of breath, no cardiac symptoms and telemetry was negative for any arrhythmias during hospital stay. - Discharge Data Discharge Date: 03/08/18 Discharge Disposition: Home, Self-Care 01 Condition: Fair - Discharge Diagnosis/Problem(s) (1) Elevated troponin SNOMED Code(s): 104612474, 692499136, 151567940 ICD Code: R74.8 - ABNORMAL LEVELS OF OTHER SERUM ENZYMES Status: Acute Problem Details: Prelim Echo shows EF 45%, possible septal hypokinesis. Plavix , beta malcom started. Continue statin and ACEI. Patient not interested in intervention with no sxs at her age. Follow up on Wednesday with Dr. Salazar at 13:15 for recheck and discuss final results. (2) Hallucinations SNOMED Code(s): 8014686 ICD Code: R44.3 - HALLUCINATIONS, UNSPECIFIED Status: Acute Problem Details: MRI showed minimal small vessel ischemic change. There was possibly a small single focus of restricted diffusion on the cortex of the left frontal lobe which may represent acute ischemia. I visited with the neurologist suction plate roller hand from [place] regarding this MRI and she recommended that at some point down the road the patient should have cardiac monitoring to rule out atrial fibrillation as this lesion is more consistent with atrial fibrillation which would warrant anticoagulation for further stroke prevention. She did not feel that likely this was contributing to hallucinations. She'll follow-up with a neurologist when she arrives in [place] for further evaluation of these hallucinations if they persist. (3) Diabetes mellitus with ophthalmic complication SNOMED Code(s): 90913016, 28229013 ICD Code: E11.39 - TYPE [address] [facility] DIABETIC OPHTHALMIC COMPLICATION Status: Acute Problem Details: Poorly controlled and I suspect the patient is having significant lows with subsequent eating and drinking trying to increase her blood sugars to normal levels. Blood sugars are stabilizing nicely. Lantus currently at 15 units and meal coverage at 4 units per meal. Discussed discharge plan with the patient and she would like to discharge on 15 units of Lantus every morning and 4 units with meals. She'll continue to check her blood sugars 4 times daily. Discussed increasing that meal coverage if her blood sugars are rising. (4) HTN (hypertension) SNOMED Code(s): 27505921 ICD Code: I10 - ESSENTIAL (PRIMARY) HYPERTENSION Status: Acute Problem Details: BP here in the 140-150s. Discharge on beta malcom, ACEI, monitor. (5) Hyperlipidemia associated with type 2 diabetes mellitus SNOMED Code(s): 538350109609, 787134522711 ICD Code: E11.69 - TYPE 2 DIABETES MELLITUS WITH OTHER SPECIFIED COMPLICATION ; E78.5 - HYPERLIPIDEMIA, UNSPECIFIED Status: Acute Problem Details: Continue outpatient statin. (6) DVT prophylaxis SNOMED Code(s): 417767655, 967801194 ICD Code: SIJ1412 - Status: Acute Problem Details: Lovenox. SCDs. - Patient Instructions Diet: Heart Healthy Diet, Diabetic Diet Other/Special Instructions: You were admitted because you had an elevated heart enzyme. The ultrasound of your heart showed possible abnormal motion of the middle portion of your heart consistent with a heart attack and a reduced squeeze of 45%. Please follow up on Wednesday with Dr. Bazan for further details as to the final report. You also were having hallucinations and your MRI of the brain showed some mild changes that could be caused by a heart condition called atrial fibrillation. We saw no evidence of this while you were hospitalized on your heart monitor, but you should be evaluated further by your primary doctor for this. Your diabetes showed a significant drop in your blood sugar overnight of over 150 points on your previous dose of Lantus. We decreased the Lantus to 15 units daily and your meal coverage to 4 units with meals. You can increase this meal insulin if your blood sugars are high during the day. > 150 add 2 units. > 200 add 4 units. > 250 add 6 units. > 300 add 8 units - Discharge Plan Prescriptions/Med Rec: Clopidogrel [Plavix] 75 mg PO DAILY #30 tablet Insulin Aspart [NovoLOG] 4 unit SUBCUT TIDMEALS #3 pen Insulin Glarg,Human.Rec.Analog [Lantus Solostar] 15 unit SQ ACBREAKFAST #5 pen Metoprolol Succinate [Toprol XL] 25 mg PO DAILY #30 tab.er Home Medications: Home Meds Celecoxib [CeleBREX] 200 mg PO DAILY 04/29/16 [History] Pravastatin [Pravachol] 20 mg PO BEDTIME 04/29/16 [History] Ranitidine HCl [Ranitidine] 300 mg PO DAILY 04/29/16 [History] Enalapril Maleate 10 mg PO BID 06/30/17 [History] Multivitamin [Men's Multi-Vitamin] 1 tab PO DAILY 03/07/18 [History] Clopidogrel [Plavix] 75 mg PO DAILY #30 tablet 03/08/18 [Rx] Insulin Aspart [NovoLOG] 4 unit SUBCUT TIDMEALS #3 pen 03/08/18 [Rx] Insulin Glarg,Human.Rec.Analog [Lantus Solostar] 15 unit SQ ACBREAKFAST #5 pen 03/08/18 [Rx] Metoprolol Succinate [Toprol XL] 25 mg PO DAILY #30 tab.er 03/08/18 [Rx] Patient Handouts: Type 2 Diabetes Mellitus, Diagnosis, Adult, Insulin Treatment for Diabetes, Diabetes Mellitus and Foot Care, Metoprolol extended- release tablets, Stroke Prevention, Clopidogrel tablets, Heart Attack, Easy-to- Read, Fall Prevention in Hospitals, Adult, Venous Thromboembolism Prevention Forms: ED Department Discharge Referrals: Dez Solomon MD [Primary Care Provider] - - Discharge Summary/Plan Comment DC Time >30 min.: Yes - General Info Date of Service: 03/08/18 Subjective Update: On the day of discharge, the patient was feeling well. She was ready to go home and ear to move to [place]. She had no chest pain, no shortness of breath, no dizziness. She is actually feeling clinically much improved with the changes in her insulin. No nausea or vomiting. No diarrhea. Tolerating new medications well and no problems with bleeding with the new Plavix. She had had occasional episodes of itching but attributed this to high blood sugars and no rash was seen with this. - Patient Data Vitals - Most Recent: Last Vital Signs Temp 36.8 C 03/08/18 12:00 Pulse 66 03/08/18 12:00 Resp 16 03/08/18 12:00 BP 154/70 H 03/08/18 12:00 Pulse Ox 95 03/08/18 12:00 Weight - Most Recent: 78.585 kg I&O - Last 24 hours: Intake & Output 03/08/18 03/08/18 03/08/18 06:59 14:59 22:59 Intake Total 200 Output Total 250 Balance -50 Lab Results - Last 24 hrs: Laboratory Results - last 24 hr 03/07/18 03/07/18 03/08/18 Range/Units 17:23 19:57 03:04 WBC (4.5-12.0) X10-3/uL RBC (3.23-5.20) x10(6)uL Hgb (11.5-15.5) g/dL Hct (30.0-51.3) % MCV (80-96) fL MCH (27.7-33.6) pg MCHC (32.2-35.4) g/dL RDW (11.5-15.5) % Plt Count (125-369) X10(3)uL Sodium (135-145) mmol/L Potassium (3.5-5.3) mmol/L Chloride (100-110) mmol/L Carbon Dioxide (21-32) mmol/L BUN (7-18) mg/dL Creatinine (0.55-1.02) mg/dL Est Cr Clr Drug Dosing mL/min Estimated GFR (MDRD) (>60) BUN/Creatinine Ratio (9-20) Glucose (80-116) mg/dL POC Glucose 126 H D 258 H D 231 H (80-116) mg/dL Calcium (8.6-10.2) mg/dL 03/08/18 03/08/18 03/08/18 Range/Units 06:20 06:20 07:27 WBC 6.8 (4.5-12.0) X10-3/uL RBC 4.57 (3.23-5.20) x10(6)uL Hgb 13.1 (11.5-15.5) g/dL Hct 39.2 (30.0-51.3) % MCV 85.8 (80-96) fL MCH 28.8 (27.7-33.6) pg MCHC 33.5 (32.2-35.4) g/dL RDW 12.4 (11.5-15.5) % Plt Count 259 (125-369) X10(3)uL Sodium 139 (135-145) mmol/L Potassium 4.7 (3.5-5.3) mmol/L Chloride 105 (100-110) mmol/L Carbon Dioxide 28 (21-32) mmol/L BUN 33 H (7-18) mg/dL Creatinine 0.9 (0.55-1.02) mg/dL Est Cr Clr Drug Dosing 34.02 mL/min Estimated GFR (MDRD) 60 (>60) BUN/Creatinine Ratio 36.7 H (9-20) Glucose 210 H (80-116) mg/dL POC Glucose 216 H (80-116) mg/dL Calcium 9.2 (8.6-10.2) mg/dL 03/08/18 Range/Units 11:50 WBC (4.5-12.0) X10-3/uL RBC (3.23-5.20) x10(6)uL Hgb (11.5-15.5) g/dL Hct (30.0-51.3) % MCV (80-96) fL MCH (27.7-33.6) pg MCHC (32.2-35.4) g/dL RDW (11.5-15.5) % Plt Count (125-369) X10(3)uL Sodium (135-145) mmol/L Potassium (3.5-5.3) mmol/L Chloride (100-110) mmol/L Carbon Dioxide (21-32) mmol/L BUN (7-18) mg/dL Creatinine (0.55-1.02) mg/dL Est Cr Clr Drug Dosing mL/min Estimated GFR (MDRD) (>60) BUN/Creatinine Ratio (9-20) Glucose (80-116) mg/dL POC Glucose 151 H (80-116) mg/dL Calcium (8.6-10.2) mg/dL Med Orders - Current: Current Medications Acetaminophen (Tylenol) 650 mg PO Q4H PRN PRN Reason: Pain (Mild 1-3)/fever Al Hydroxide/Mg Hydroxide (Mag-Al Susp) 30 ml PO Q2H PRN PRN Reason: Indigestion Last Admin: 03/05/18 20:55 Dose: 30 ml Celecoxib (Celebrex) 200 mg PO DAILY [facility] Last Admin: 03/08/18 09:14 Dose: 200 mg Clopidogrel Bisulfate (Plavix) 75 mg PO DAILY [facility] Last Admin: 03/08/18 09:14 Dose: 75 mg Enalapril Maleate (Vasotec) 10 mg PO BID [facility] Last Admin: 03/08/18 09:17 Dose: 10 mg Enoxaparin Sodium (Lovenox) 30 mg SUBCUT DAILY [facility] Last Admin: 03/08/18 09:13 Dose: 30 mg Famotidine (Pepcid) 20 mg PO DAILY [facility] Last Admin: 03/08/18 09:14 Dose: 20 mg Hydroxyzine HCl (Atarax) 25 mg PO Q4H PRN PRN Reason: Itching Insulin Aspart (Novolog) 0 unit SUBCUT TIDMEALS [facility]; Protocol Last Admin: 03/08/18 11:53 Dose: 2 units Insulin Aspart (Novolog) 4 unit SUBCUT TIDMEALS [facility] Last Admin: 03/08/18 11:52 Dose: 4 units Insulin Detemir (Levemir) 15 unit SUBCUT ACBREAKFAST [facility] Last Admin: 03/08/18 06:38 Dose: 15 units Metoprolol Succinate (Toprol Xl) 25 mg PO DAILY [facility] Last Admin: 03/08/18 09:15 Dose: 25 mg Morphine Sulfate (Morphine) 2 mg IVPUSH Q2H PRN PRN Reason: Pain (severe 7-10) Nitroglycerin (Nitrostat) 0.4 mg SL Q5M PRN PRN Reason: Chest Pain Last Admin: 03/06/18 08:25 Dose: 0.4 mg Ondansetron HCl (Zofran) 4 mg IV Q4H PRN PRN Reason: Nausea/Vomiting Senna/Docusate Sodium (Senna Plus) 1 tab PO BID PRN PRN Reason: Constipation Simvastatin (Zocor) 10 mg PO BEDTIME [facility] Last Admin: 03/07/18 20:20 Dose: 10 mg Sodium Chloride (Saline Flush) 10 ml FLUSH ASDIRECTED PRN PRN Reason: Keep Vein Open Last Admin: 03/07/18 17:35 Dose: 10 ml Discontinued Medications Al Hydroxide/Mg Hydroxide (Mag-Al Susp) Confirm Administered Dose 30 ml .ROUTE .STK-MED ONE Stop: 03/05/18 20:55 Last Admin: 03/05/18 21:08 Dose: Not Given Aspirin (Aspirin) 324 mg PO ONETIME ONE Stop: 03/05/18 08:53 Last Admin: 03/05/18 09:01 Dose: Not Given Aspirin (Halfprin) 81 mg PO DAILY [facility] Clopidogrel Bisulfate (Plavix) 300 mg PO ONETIME ONE Stop: 03/05/18 09:15 Last Admin: 03/05/18 09:52 Dose: 300 mg Dextrose/Water (Dextrose 50% In Water) Confirm Administered Dose 50 ml .ROUTE .STK-MED ONE Stop: 03/05/18 16:33 Last Admin: 03/05/18 16:42 Dose: Not Given Dextrose/Water (Dextrose 50% In Water) 25 ml IVPUSH ONETIME ONE Stop: 03/05/18 16:37 Last Admin: 03/05/18 16:33 Dose: 25 ml Heparin Sodium (Porcine) (Heparin Sodium) 5,000 units IVPUSH ONETIME ONE Stop: 03/05/18 05:22 Last Admin: 03/05/18 06:14 Dose: 5,000 units Hydroxyzine HCl (Atarax) 50 mg PO Q4H PRN PRN Reason: Itching Last Admin: 03/07/18 08:09 Dose: 50 mg Heparin Sodium/Sodium Chloride (Heparin 25,000 Units In 1/2 Ns 500 Ml) 25,000 units in 500 mls @ 20 mls/hr IV TITRATE [facility]; Protocol Sodium Chloride (Normal Saline) 1,000 mls @ 75 mls/hr IV ASDIRECTED [facility] Last Admin: 03/05/18 06:12 Dose: 75 mls/hr Insulin Aspart (Novolog) 5 unit SUBCUT TIDMEALS [facility] Last Admin: 03/05/18 12:56 Dose: 5 units Insulin Aspart (Novolog) 30 unit SUBCUT ACBREAKFAST [facility] Last Admin: 03/05/18 10:04 Dose: Not Given Insulin Aspart (Novolog) 2 unit SUBCUT TIDMEALS [facility] Last Admin: 03/07/18 17:27 Dose: 2 units Insulin Detemir (Levemir) 30 unit SUBCUT ACBREAKFAST [facility] Last Admin: 03/05/18 09:40 Dose: 30 units Non-Formulary Medication (Insulin Glarg,Human.Rec.Analog [Lantus Solostar]) 42 unit SQ ACBREAKFAST [facility] Last Admin: 03/05/18 09:00 Dose: Not Given Non-Formulary Medication (Insulin Lispro [Humalog]) 5 unit SQ TID [facility] Temazepam (Restoril) 7.5 mg PO BEDTIME PRN PRN Reason: Sleep - Exam General: Reports: Alert, Oriented, Cooperative, No Acute Distress HEENT: Reports: Pupils Equal, Pupils Reactive Neck: Reports: Supple Lungs: Reports: Clear to Auscultation, Normal Respiratory Effort Cardiovascular: Reports: Regular Rate, Regular Rhythm, No Murmurs GI/Abdominal Exam: Normal Bowel Sounds, Soft, Non-Tender, No Distention Extremities: No Pedal Edema Psy/Mental Status: Reports: Alert, Normal Affect, Normal Mood
--- NOTE | 2018-03-09 09:28 | ER ---
DATE SEEN: 03/05/2018 TIME SEEN: The patient was seen at 0244 hours. HISTORY OF PRESENT ILLNESS: This 82-year-old woman who moved from [place] to stay with her grandson and daughter in [facility] and now is noted to experience confusion today. This has happened on occasion before. Today, she has had a delusion; a visual hallucination of a little boy standing next to her with blond hair, fidgeting. He was making faces at her. She called her daughter and grandson and has been transferred by them to the hospital for further evaluation. She experienced this at 2130 this evening. I am not aware, from the description, that she has sundown syndrome, but it is very possible. She denies any recent fall. She complains about tinnitus in the left ear. 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 She has lived in [place] until recently and has recently moved from [place] to live with her daughter, but she plans to go back to [place] where she originally lived. Here, they live in an apartment. Apparently, has been here for less than a month. She has not felt good for the past 2 weeks. She was somewhat vague about how she feels and describes that she feels "spacey" and "foggy". She has mild ataxia with walking for the last 4 weeks. She talks about constipation and sometimes stools are loose and most of time they are "blocked up". "I do not know what is happening to me. I really wonder if I have Parkinson's. She has some difficulty walking. She is able to add and subtract and perform computations. She is oriented x3. She uses a cane when she gets up and walks, and she has some incontinence of urine. She is 4, para 4-0-0-4. History of diabetes, well controlled with insulin. History of hypertension, controlled blood pressure. She is edentulous and has poor vision for the last 2 years. 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 She complains of mild shortness of breath. Never smoked. REVIEW OF SYSTEMS: All the above was noted in review of systems. MEDICATIONS: 1. Enalapril 10 mg b.i.d. 2. Celebrex 200 mg daily. 3. Benzonatate (Tessalon Perles 100 mg b.i.d. p.r.n.). 4. Valacyclovir 1000 mg b.i.d. 5. Ranitidine 300 mg daily. 6. Pravastatin 20 mg daily. 7. Lispro t.i.d. 8. Glargine 50 units subcu a.m. ALLERGIES: To aspirin, codeine, penicillin, tetracycline. PAST MEDICAL HISTORY: History as noted above, previous history of urine incontinence and back pain intermittently. PHYSICAL EXAMINATION: VITAL SIGNS: Blood pressure 140/79, heart rate 91, respirations 15, oxygen saturation 97%. Weight 81.647 kg and BMI of 35.2 kg/m2. GENERAL: The patient looks younger than her age. She is sitting and has a cane under her hand. HEENT: PERRLA intact. EOMs normal. Hearing is good. Pharynx without abnormality. Edentulous. NECK: No bruits in the neck. No cervical adenopathy, thyromegaly, or tracheal tug or tracheal deviation. LUNGS: Clear without rales, rhonchi, or wheezes. HEART: S1 and S2. No irregular rate or rhythm. ABDOMEN: Soft. No guarding. No abdominal discomfort. Bowel sounds normal. EXTREMITIES: Lower extremities have peripheral neuropathy. Mild tenderness with palpation of lower extremities. She has stasis dermatitis and slight atrophy of lower extremities. Deep tendon reflexes hypoactive in upper and lower extremities. NEUROLOGIC: Cranial nerves II through XII intact. Oriented x3. Gait with mild ataxia and uses a cane. Has a wide-based gait which is stable with walking. DIAGNOSTIC DATA: A CT of her head: Age-related changes. No abnormalities, bleed, or [facility] mass. WORKING DIAGNOSES: 1. Dementia with gradual mentation change with delusions and new hallucination today with no evidence for schizophrenia or depression. Rule out mets to brain. 2. Hypertension, treated. 3. Diabetes. 4. No anemia or leukocytosis. 5. Decreased GFR at 47. 6. Chronic kidney disease with BUN of 26, creatinine 1.1. Remainder of the automated chemistry is normal. Reassured there are no critical changes with her dementia. Perhaps may warrant antidepressant. I am worried about potential for recurrent falling. She is alert and oriented and also has appropriate thought content and can perform mathematic activity and also no evidence for [facility] lesion or bleed. She has an elevated troponin of 0.458. This suggests she has had a myocardial infarction. She is not aware of any chest pain and not had symptoms. DIAGNOSES: 1. On the basis of troponin, the patient has [id number] myocardial infarction. The patient will be admitted for observation. At this point, I am not planning to send her to [place], per patient preference. 2. 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 3. Poor vision. 4. Dentures. 5. Hypertension. 6. Diabetes, controlled, includes diabetic peripheral neuropathy. 7. Fear of Parkinson's. At present, she has difficulty writing but does not have a nonintention tremor. 8. History of constipation present. 9. Delusion. 10.Tinnitus. 11.Deaf, left ear. 12.Mild ataxia. /[id number] ALIYAH/EILEEN
== END 2018-03-08 15:55 | disposition home or self-care (01) | DRG 948 ==
LOC: FB.ED 02:38 → FB.ICU 04:53 → OBSVTOIN 09:13 → FB.MS 03-06 07:45
PROVIDERS: ADMIT Emergency Medicine; ATTEND Family Medicine
DX: R74.8 Abnormal levels of other serum enzymes (principal); Z66 Do not resuscitate; I12.9 Hypertensive chronic kidney disease with stage 1 through stage 4 chronic kidney disease, or unspecified chronic kidney disease; N18.9 Chronic kidney disease, unspecified; E11.42 Type 2 diabetes mellitus with diabetic polyneuropathy; Z79.4 Long term (current) use of insulin; Z99.81 Dependence on supplemental oxygen; E11.311 Type 2 diabetes mellitus with unspecified diabetic retinopathy with macular edema; E11.65 Type 2 diabetes mellitus with hyperglycemia; E11.22 Type 2 diabetes mellitus with diabetic chronic kidney disease; R44.1 Visual hallucinations; R41.0 Disorientation, unspecified; Z86.73 Personal history of transient ischemic attack (TIA), and cerebral infarction without residual deficits; Z87.440 Personal history of urinary (tract) infections; K21.9 Gastro-esophageal reflux disease without esophagitis; E78.5 Hyperlipidemia, unspecified; H54.7 Unspecified visual loss; H91.92 Unspecified hearing loss, left ear; R26.0 Ataxic gait; M19.90 Unspecified osteoarthritis, unspecified site; Z96.653 Presence of artificial knee joint, bilateral; Z88.6 Allergy status to analgesic agent; Z88.1 Allergy status to other antibiotic agents; Z88.5 Allergy status to narcotic agent; Z88.0 Allergy status to penicillin
CPT/HCPCS: 36415; 70450; 70551; 80048; 80053; 80305; 81001; 82947; 82962; 84484; 85025; 85027; 85610; 85730; 93005; 93306; 99285; A9270-GY; J1644; J1650; J7030; J7050